=== PATIENT | male | born 1965 | race Caucasian/White ===

== ENCOUNTER 2016-12-19 16:00 | Emergency (ER) | payer MEDICAID, OTHER ==
[2016-12-19] MEDS ORDERED: ALBUTEROL 3 ML DEYVIAL IH ONE ×3 (19:23→21:42)
[2016-12-19] MEDS ORDERED: IPRATROPIUM/ALBUTEROL 3 ML DEYVIAL IH ONE (19:23)
[2016-12-19] MEDS ORDERED: predniSONE 20 MG TAB PO ONE (19:23)
--- NOTE | 2016-12-19 19:25 | EDPHY ---
H & P Smoking Status: Former smoker Time Seen by Provider: 12/19/16 19:10 HPI/ROS: CHIEF COMPLAINT: Trouble breathing HISTORY OF PRESENT ILLNESS: 51-year-old man is an ex smoker quit in 1999. He was exposed to significant amount of chemicals when he was coating a concrete floor with epoxy 10 days ago. Shortly after this in the next 24 hours he developed shortness of breath which he describes as wheezing. He feels he has congestion in his chest and worse at night and worse when he is lying flat. It is associated with some nasal congestion and a nonproductive cough. He also has pain in both sides of his chest and his ribs but he attributes that to coughing. Symptoms are severe. REVIEW OF SYSTEMS: Eye: no change in vision ENT: no sore throat Cardiac: no palpitations or syncope Pulmonary: HPI no hemoptysis Abdomen: no vomiting, diarrhea, abdominal pain Musculoskeletal: No back pain or leg swelling Skin: no rash Neuro: no headache Constitutional: no fever : no urinary symptoms A comprehensive 10 point review of systems is otherwise negative aside from elements mentioned in the history of present illness. PAST MEDICAL HISTORY: Vocal cord surgery in 1999 Social history: Quit smoking in 1999, family history positive for DVT in his mother. General Appearance: Alert and conversant, cooperative. Eyes: No scleral icterus. ENT, Mouth: Normal mucous membranes. Respiratory: Bilateral expiratory wheezing with prolonged expiratory phase and rhonchi. Cardiovascular: Regular rate and rhythm. Gastrointestinal: Abdomen is soft and non tender. Neurological: Alert and oriented x3. Normally conversant. Face symmetric, normal movement and sensation in all extremities. Skin: Warm and dry, no rashes. Musculoskeletal: No peripheral edema and no joint swelling. No calf tenderness. Psychiatric: Not agitated. Emergency Department course/MDM: D-dimer with shortness of breath and tachycardia and family history of venous thromboembolism. DuoNeb, albuterol neb, chest x-ray and steroids discussed and consented; prednisone 60 mg orally. 2010: Feels a lot better. He is not really wheezing any more. D-dimer elevated, would perform CT angiography in this patient who has a family history of DVT and no previous history of wheezing. 2023: Discussed CTA with elevated D-dimer and family history of DVT. Consented. 2129: CT personally reviewed is negative for pulmonary embolism; Epi at 2140. 2140: Results discussed, does desaturate into the high 80s with exertion, additional nebulizer given. 2154: Signed out to Dr. Catarino Crooks with the plan for continued nebulizer treatments and admission if remains hypoxemic. The patient would like to go home and I think it is reasonable if his saturations improve. (Chico Navas) Constitutional: Initial Vital Signs Temperature (C) 36.6 C 12/19/16 16:10 Heart Rate 101 H 12/19/16 16:10 Respiratory Rate 18 12/19/16 16:10 Blood Pressure 165/103 H 12/19/16 16:10 O2 Sat (%) 92 12/19/16 16:10 O2 Delivery Mode Room Air O2 (L/minute) 2 Allergies/Adverse Reactions: No Known Allergies Allergy (Verified 12/19/16 16:20) Home Medications: Medication Instructions Recorded No Medications [NO HOME 1 ea [facility] [place] 04/28/11 MEDICATIONS] predniSONE [prednisone 20mg (RX)] 40 mg PO DAILY 5 Days tab 12/19/16 Medical Decision Making - Diagnostics EKG Interpretation: 12-lead EKG interpreted by me; official reading is in trace master. My interpretation is sinus rhythm with left axis. No ischemic changes. (Chico Navas) Imaging Results: Imaging Impressions Chest X-Ray 12/19/16 19:23 Impression: Mild peribronchial thickening suggesting airways disease/bronchitis. Chest/Thorax CTA 12/19/16 20:24 Impression: 1. No visible pulmonary embolus. 2. Bronchitis/airways disease, with prominent mucous plugging. 3. 5 mm left lower lobe nodule. If the patient is a smoker or is high risk, unenhanced low dose chest CT for follow up in 12 months is considered optional. Otherwise, no further follow up is needed per Fleischner Society criteria. Findings discussed with Chico Navas M.D., on December 19, 2016 at 2140. E:amm Differential Diagnosis: Care assumed by me from Dr. Navas pending improvement in his respiratory status. Patient presented with wheezing. Workup is negative including D-dimer and CT scan of his chest. He is improved with 2 nebs here but is still having some wheezing and hypoxia. He is given a continuous neb. He is feeling better but is still having some mild expiratory wheezes to forced expiration. Oxygen saturations are dropping down to 87% on room air. I have encouraged the patient to stay in the hospital for further care if he lives at a 7000 feet but he insists that he must go home will not stay in the hospital. I told him to expect that his symptoms would worsen if he goes elevation but again he does not want to stay in the hospital. His significant other does have an oxygen concentrator that she uses only during the daytime. He will be able to use at night. He assures me he will follow up with any referrals tomorrow for further evaluation. He will be able to use the oxygen tonight she goes home. He will return for worsening shortness of breath, chest pain, or any other concerns. He has been written for prednisone and a MDI with spacer by . (Wade Crooks) Differential diagnosis considered for shortness of breath including but not limited to pulmonary infectious process, COPD, asthma, pulmonary embolus and congestive heart failure. (Chico Navas) - Data Points Laboratory Results: Laboratory Results 12/19/16 19:44 12/19/16 19:44 12/19/16 12/19/16 12/19/16 19:44 19:44 19:44 WBC 8.61 10^3/uL 10^3/uL (3.80-9.50) RBC 5.09 10^6/uL 10^6/uL (4.40-6.38) Hgb 16.6 g/dL g/dL (13.7-17.5) Hct 48.6 % % (40.0-51.0) MCV 95.5 fL fL (81.5-99.8) MCH 32.6 pg pg (27.9-34.1) MCHC 34.2 g/dL g/dL (32.4-36.7) RDW 13.2 % % (11.5-15.2) Plt Count 282 10^3/uL 10^3/uL (150-400) MPV 9.3 fL fL (8.7-11.7) Neut % (Auto) 65.2 % % (39.3-74.2) Lymph % (Auto) 17.7 % % (15.0-45.0) [place] % (Auto) 10.5 % % (4.5-13.0) Eos % (Auto) 5.1 % % (0.6-7.6) Baso % (Auto) 1.2 % % (0.3-1.7) Nucleat RBC Rel Count 0.0 % % (0.0-0.2) Absolute Neuts (auto) 5.62 10^3/uL 10^3/uL (1.70-6.50) Absolute Lymphs (auto) 1.52 10^3/uL 10^3/uL (1.00-3.00) Absolute Monos (auto) 0.90 10^3/uL H 10^3/uL (0.30-0.80) Absolute Eos (auto) 0.44 10^3/uL H 10^3/uL (0.03-0.40) Absolute Basos (auto) 0.10 10^3/uL 10^3/uL (0.02-0.10) Absolute Nucleated RBC 0.00 10^3/uL 10^3/uL (0-0.01) Immature Gran % 0.3 % % (0.0-1.1) Immature Gran # 0.03 10^3/uL 10^3/uL (0.00-0.10) D-Dimer 0.57 ug/mLFEU H ug/mLFEU (0.00-0.50) Sodium 138 mEq/L mEq/L (134-144) Potassium 4.2 mEq/L mEq/L (3.5-5.2) Chloride 102 mEq/L mEq/L (97-110) Carbon Dioxide 23 mEq/l mEq/l (22-31) Anion Gap 13 mEq/L mEq/L (8-16) BUN 11 mg/dL mg/dL (7-23) Creatinine 1.1 mg/dL mg/dL (0.7-1.3) Estimated GFR > 60 Glucose 95 mg/dL mg/dL (70-100) Calcium 10.4 mg/dL mg/dL (8.5-10.4) Medications Given: Discontinued Medications Albuterol (Proventil Neb) 3 ml IH EDNOW ONE Stop: 12/19/16 19:24 Last Admin: 12/19/16 19:44 Dose: 3 ml Albuterol (Proventil Neb) 3 ml IH EDNOW ONE Stop: 12/19/16 20:25 Last Admin: 12/19/16 20:54 Dose: 3 ml Albuterol (Proventil Neb) 3 ml IH EDNOW ONE Stop: 12/19/16 21:43 Last Admin: 12/19/16 21:43 Dose: 3 ml Albuterol Sulfate (Proventil Inh Prepack) 1 mdi TAKEHOME EDNOW ONE Stop: 12/19/16 20:26 Last Admin: 12/19/16 20:54 Dose: 1 mdi Albuterol/Ipratropium (Duoneb) 3 ml IH EDNOW ONE Stop: 12/19/16 19:24 Last Admin: 12/19/16 19:44 Dose: 3 ml Sodium Chloride (Ns) 1,000 mls @ 0 mls/hr IV ONCE ONE; Wide Open PRN Reason: Protocol Stop: 12/19/16 21:40 Last Admin: 12/19/16 21:41 Dose: 1,000 mls Prednisone (Prednisone) 60 mg PO EDNOW ONE Stop: 12/19/16 19:24 Last Admin: 12/19/16 19:44 Dose: 60 mg Departure - Departure Disposition: Home, Routine, Self-Care Clinical Impression: Bronchospasm, acute Acute bronchitis Qualifiers: Bronchitis organism: unspecified organism Qualified Code(s): J20.9 - Acute bronchitis, unspecified Condition: Good Instructions: Reactive Airways Disease (ED), Bronchospasm (ED) Additional Instructions: You may use your inhaler with a spacer 2 puffs every 2 hours as needed for wheezing or shortness of breath. Continue using oxygen with a nasal cannula 2 liters/minute overnight. Please make certain to follow up with her primary care physician in 1-2 days for further evaluation. Referrals: Asa Jaramillo MD [Medical Doctor] - As per Instructions Prescriptions: predniSONE [prednisone 20mg (RX)] 40 mg PO DAILY 5 Days tab
--- NOTE | 2016-12-19 19:45 | CPEKG ---
Heart Rate: 88 RR Interval: 682 P-R Interval: 152 QRSD Interval: 92 QT Interval: 376 QTC Interval: 455 P [place]: 24 QRS [place]: -20 T Wave [place]: 20 EKG Severity - OTHERWISE NORMAL ECG - EKG Impression: SINUS RHYTHM EKG Impression: BORDERLINE LEFT AXIS DEVIATION Electronically Signed By: Chico Navas 19-Dec-2016 19:46:36
[2016-12-19 19:51] LABS: % IMMATURE GRANULYOCYTES 0.3 % (0.0-1.1); ABSOLUTE IMMATURE GRANULOCYTES 0.03 10^3/uL (0.00-0.10); ADD DIFF? NO; ADD MORPH? NO; ADD SCAN? NO; ATYPICAL LYMPHOCYTE FLAG 30 (0-99); FRAGMENT RBC FLAG 0 (0-99); HEMATOCRIT 48.6 % (40.0-51.0); HEMOGLOBIN 16.6 g/dL (13.7-17.5); LEFT SHIFT FLG 0 (0-99); LIPEMIA HEMOLYSIS FLAG 90 (0-99); MEAN CELL HEMOGLOBIN 32.6 pg (27.9-34.1); MEAN CELL HEMOGLOBIN CONCENTR. 34.2 g/dL (32.4-36.7); MEAN CELL VOLUME 95.5 fL (81.5-99.8); MEAN PLATELET VOLUME 9.3 fL (8.7-11.7); PLATELET CLUMPS FLAG 0 (0-99); PLATELET COUNT 282 10^3/uL (150-400); RED BLOOD CELL COUNT 5.09 10^6/uL (4.40-6.38); RED CELL DISTRIBUTION WIDTH 13.2 % (11.5-15.2)
[2016-12-19 20:19] LABS: ANION GAP 13 mEq/L (8-16); CALCIUM 10.4 mg/dL (8.5-10.4); CARBON DIOXIDE 23 mEq/l (22-31); CHLORIDE 102 mEq/L (97-110); CREATININE 1.1 mg/dL (0.7-1.3); GLOMERULAR FILTRATION RATE > 60; GLUCOSE 95 mg/dL (70-100); POTASSIUM 4.2 mEq/L (3.5-5.2); SODIUM 138 mEq/L (134-144)
[2016-12-19] MEDS ORDERED: ALBUTEROL INH PREPACK MDI TAKEHOME ONE (20:25)
[2016-12-19] MEDS ORDERED: IOPAMIDOL (ISOVUE 370) 100 ML BTL IV ONE ×2 (21:02→21:16)
[2016-12-19] MEDS ORDERED: NS 1,000 ML IV ONE (21:39)
[2016-12-19] MEDS ORDERED: ALBUTEROL 3 ML DEYVIAL ONE (21:43)
[2016-12-20 00:35] VITALS: BP 154/104; PULSE 115; RESP 20; TEMP 98.4; O2SAT 90
== END 2016-12-20 00:33 | disposition home or self-care (01) ==
DX: J20.9 Acute bronchitis, unspecified (principal); E86.9 Volume depletion, unspecified; Z87.891 Personal history of nicotine dependence
CPT/HCPCS: Q9967